=== PATIENT | male | born 1960 | race Caucasian/White ===

== ENCOUNTER 2024-02-06 10:08 | Emergency (ER) | payer OTHER, SELFPAY ==
[2024-02-06 10:15] VITALS: BP 122/92
--- NOTE | 2024-02-06 11:17 | ED.GENMED ---
History of Present Illness
General
Chief Complaint: Abdominal Pain
Source: patient
Exam Limitations: none
Time Seen by Provider: 02/06/24 11:02
Nursing documentation reviewed up to this point in time: agreed with
Travel History
Have you had any contact with someone who has COVID-19?: No
Do you have any symptoms of coronavirus? Fever > 100 degrees, chills, cough, shortness of breath, sore throat, loss of taste or smell, muscle aches, or headache?: No
History of Present Illness
History of Present Illness:
Patient is a 63-year-old male with past medical history of diverticulitis with abscess, alcohol abuse hypertension hyperlipidemia chronic gastritis
presents to the ER complaining of left-sided abdominal discomfort since late last night. Patient also reports he normally has a bowel movement every morning but he only had a little bit yesterday a little bit today which is not normal. He denies
any associated nausea vomiting fever chills. He does feel the same as he did when he was seen here in 2019 with diverticulitis.
Past History
Past History
ED Past Medical History: HTN and Hypercholesterolemia
ED Past Surgical History: Orthopedic
Social History
Tobacco: Former smoker
Alcohol: Daily (Beer 6 pack)
Personal:
Living: with family
Employment: Employed
Review of Systems
Review of Systems
Allergies reviewed?: Yes
All Other Systems: ROS reviewed and negative except as documented in HPI and ROS
Constitutional: Reports no symptoms; Denies fever, fatigue or chills
Respiratory: Reports no symptoms
Cardiac: Reports no symptoms
ABD/GI: Reports no symptoms
: Reports no symptoms
Skin: Reports no symptoms
Neurological: Reports no symptoms
Psychiatric: Reports no symptoms
Phy Exam
General Physical Exam
General Presentation: no apparent distress
General age: appears stated age
General Skin: warm and dry
General Habitus: normal
General Mental: alert
General Hydration: appears well hydrated
Gastrointestinal Exam
Gastrointestinal Exam: soft and other ( tender left abdominal region )
Neurological Exam
Neurological Exam: alert and oriented x3
Musculoskeletal Exam
Musculoskeletal Exam: full ROM
Skin Exam
Skin Exam: normal color and warm/dry
Psychiatric Exam
Psychiatric Exam: normal mood/affect
Course
Orders/Labs/Results
Orders:
Orders
02/06/24 11:28
Iohexol [Omnipaque] See Protocol PO NOW STA
02/06/24 11:30
CT Abd/pel W Iv And Oral Contr Urgent
Comment:
Reason For Exam: left sided abd pain
02/06/24 11:31
IV Insert/Care/Rem.- Treatment PRN
0.9% Sodium Chloride 1000 ml [Nss] 1,000 ml IV BOLUS
02/06/24 11:35
Complete Blood Count/With Diff Urgent
Comprehensive Metabolic Panel Urgent
Lipase Urgent
02/06/24 12:57
Urinalysis Reflex To Culture Urgent
Date Specimen was Collected: 02/06/24
Time Specimen was Collected: 12:56
02/06/24 14:46
Amoxicillin 875 mg/Clav 125 mg [Augmentin 875 mg/125 mg] 1 tablet PO NOW STA
02/06/24 14:51
Vital Signs- Treatment ONCE
Frequency: Once
Abnormal Lab Results
02/06/24
11:35
WBC 12.4 H 10^3/uL
(4.8-10.8)
RBC 4.55 L 10^6/uL
(4.70-6.10)
MCH 31.2 H pg
(27.0-31.0)
Absolute Neuts (auto) 9.6 H 10^3/uL
(1.4-6.5)
Absolute Monos (auto) 1.4 H 10^3/uL
(0.1-0.6)
Neutrophils % 77.0 H %
(42.2-75.2)
Lymphocytes % 10.2 L %
(20.5-51.1)
Monocytes % 11.4 H %
(1.7-9.3)
Sodium 133 L mmol/L
(135-145)
Creatinine 0.6 L mg/dL
(0.7-1.3)
02/06/24 11:35
02/06/24 11:35
Vital Signs
Initial and Last Documented VS:
Initial Vital Signs
Temp Pulse Resp BP Pulse Ox
97.7 F 96 18 122/92 98
02/06/24 10:15 02/06/24 10:15 02/06/24 10:15 02/06/24 10:15 02/06/24 10:15
Last Documented Vital Signs
Temp Pulse Resp BP Pulse Ox
97.7 F 96 18 122/92 98
02/06/24 10:15 02/06/24 10:15 02/06/24 10:15 02/06/24 10:15 02/06/24 10:15
MDM/Problems Addressed
Differential Diagnosis Includes:
Not limited to diverticulitis, less likely bowel obstruction
MDM/Problems Addressed:
CAT scan shows uncomplicated acute diverticulitis of the proximal sigmoid colon. Patient no acute distress looks well has not required anything for pain here in the ER. White count 12.4. Patient does report that when he was seen here and admitted
couple years ago he did wind up getting C. difficile he at that time he was discharged on Flagyl and Cipro because CAT scan reads uncomplicated and patient is no acute distress and well-appearing will DC on Augmentin
*Critical Care Note
Total Time (30-74mins, 75-104mins- exclusive of procedures): Not Applicable
ED Attending Note
-
Portions of this chart may have been created with voice recognition software.� Occasional wrong word or��sound alike� substitutions may have occurred due to the inherent limitations of voice recognition software.
Discharge Plan
Departure
Patient Disposition: Home (Routine Discharge)
Date of Disposition: 02/06/24
Time of Disposition: 14:47
Patient with high blood pressure during this ER visit?: Yes
Condition: Fair
Covid-19: Not Applicable
Discharge Problem:
Diverticulitis
Instructions: Diverticulitis (DC)
Prescriptions:
New
amoxicillin-pot clavulanate 875-125 mg tablet
1 tab PO BID Qty: 20 0RF
No Action
aspirin 81 MG tablet,chewable
81 mg PO DAILY Qty: 1 0RF
Rx Instructions:
over the counter
losartan 50 MG tablet
50 mg PO DAILY
pantoprazole 40 MG tablet,delayed release (DR/EC)
40 mg PO DAILY 30 Days Qty: 30 0RF
vancomycin [Vancocin] 125 MG capsule
125 mg PO QID Qty: 40 0RF
moxifloxacin [Avelox] 400 MG tablet
400 mg PO DAILY Qty: 10 0RF
Referrals:
Ginny Lorenzana MD [Active] -
Ailin Smith CRNP [Family Provider] -
Activity Restrictions/Additional Instructions:
Antibiotic as directed daily for the next 10 days. This medication was sent to her pharmacy. [place] diet as discussed. Follow-up with your family doctor in the next several days as well as GI. Call to make an appointment to return if any
worsening of symptoms of worsening abdominal pain nausea vomiting fever chills.
Interventions
Interventions:
*Risk Screen - Suicide Last Done: 02/06/24 10:15
*General Assessment Last Done: 02/06/24 10:15
*Neglect/Abuse Screening Last Done: 02/06/24 10:15
*ED COVID-19 Vaccine History Last Done: 02/06/24 10:15
LX-Ofznrs-Ghtbpcfbch Assessment Last Done: 02/06/24 11:30
ED- Neurological Assessment Last Done: 02/06/24 11:30
ED-Psychological Assessment Last Done: 02/06/24 11:30
Discharge Date and Time
Print Language: UKRAINIAN
[2024-02-06] MEDS: NSS 1000 IV (11:35)
[2024-02-06] MEDS: OMNIPAQUE 50 ML PO (11:36)
[2024-02-06 12:01] LABS: % Basophils 0.6 % (0-2); % Eosinophils 0.6 % (0-6); % Immature Granulocytes 0.2 % (0-0.5); % Lymphocytes 10.2 % (20.5-51.1); % Monocytes 11.4 % (1.7-9.3); Absolute Basophils 0.1 10^3/uL (0-0.2); Absolute Eosinophils 0.1 10^3/uL (0-0.7); Absolute Lymphocytes 1.3 10^3/uL (1.2-3.4); Absolute Monocytes 1.4 10^3/uL (0.1-0.6); Absolute Neutrophils 9.6 10^3/uL (1.4-6.5); Hemoglobin 14.2 g/dL (13.0-18.0); Mean Corp Hgb Conc. 33.8 g/dL (33.0-37.0); Mean Corpuscular Hgb 31.2 pg (27.0-31.0); Mean Corpuscular Volume 92.3 fL (80.0-94.0); Mean Platelet Volume 10.2 fL (7.4-10.4); Nucleated Red Blood Cells % 0 % (-); Platelet Count 194 10^3/uL (130-400); Red Blood Cell Count 4.55 10^6/uL (4.70-6.10); White Blood Cell Count 12.4 10^3/uL (4.8-10.8)
[2024-02-06 12:04] LABS: ALT (SGPT) 14 U/L (0-50); AST (SGOT) 20 U/L (17-59); Albumin 3.9 g/dl (3.5-5.0); Alkaline Phosphatase 87 U/L (38-126); Blood Urea Nitrogen 11 mg/dl (9-20); Calcium 9.4 mg/dl (8.4-10.2); Carbon Dioxide 24 mmol/L (22-30); Chloride 105 mmol/L (98-107); Estimated Creatinine Clearance > 125 ml/min; Glucose 98 mg/dl (70-99); Lipase 68 U/L (23-300); Potassium 4.2 mmol/L (3.5-5.1); Sodium 133 mmol/L (135-145); Total Bilirubin 0.8 mg/dl (0.2-1.3); Total Protein 6.4 g/dl (6.3-8.2); eGFR > 60.00
[2024-02-06 13:13] LABS: Urine Albumin Negative (Neg - Trace); Urine Bilirubin Negative (Negative); Urine Character Clear (Clear); Urine Color Yellow; Urine Glucose Negative (Negative); Urine Ketone Negative (Negative); Urine Leukocyte Negative (Negative); Urine Nitrite Negative (Negative); Urine Occult Blood Negative (Negative); Urine Specific Gravity 1.005 (<1.030); Urine Urobilinogen Negative (Neg - 1+)
[2024-02-06] MEDS: AUGMENTIN 875 MG/125 MG 1 TABLET PO (15:01)
[2024-02-06 15:07] VITALS: BP 129/87
== END 2024-02-06 15:09 | disposition home or self-care (01) ==
LOC: EMR 10:08
PROVIDERS: Nurse Practitioner; EMERGENCY PHYSICIAN Emergency Medicine; FAMILY PHYSICIAN Nurse Practitioner
DX: K57.32 Diverticulitis of large intestine without perforation or abscess without bleeding (principal); I10 Essential (primary) hypertension; Z87.891 Personal history of nicotine dependence
CPT/HCPCS: 99285; 96360; 74177; 80053; 81003; 83690; 85025; Q9967

== ENCOUNTER → 2024-04-01 06:31 | Day surgery (SDC) | payer OTHER, SELFPAY | LOC: GI 06:31 | PROVIDERS: ATTENDING PHYSICIAN Internal Medicine | DX: R93.3 Abnormal findings on diagnostic imaging of other parts of digestive tract (principal); K57.30 Diverticulosis of large intestine without perforation or abscess without bleeding; K57.32 Diverticulitis of large intestine without perforation or abscess without bleeding; K63.5 Polyp of colon; R13.10 Dysphagia, unspecified; K22.89 Other specified disease of esophagus; K44.9 Diaphragmatic hernia without obstruction or gangrene; K31.89 Other diseases of stomach and duodenum; K21.00 Gastro-esophageal reflux disease with esophagitis, without bleeding; K29.50 Unspecified chronic gastritis without bleeding | CPT/HCPCS: 45385; 43239; 88305; 88342 ==

== ENCOUNTER 2024-11-16 09:57 | Emergency (ER) | payer OTHER, SELFPAY ==
[2024-11-16 09:59] VITALS: BP 153/87
--- NOTE | 2024-11-16 10:37 | ED.GENMED ---
History of Present Illness
General
Chief Complaint: Abdominal Symptoms
Source: patient
Exam Limitations: none
Time Seen by Provider: 11/16/24 10:33
Nursing documentation reviewed up to this point in time: agreed with
History of Present Illness
History of Present Illness:
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
4 days ago: chills, woke up in soaking sweat, non bloody watery diarrhea through the night, violent vomiting
3 days ago: violent vomiting in a.m. then able to drink tea and eat toast
Past 2 days: [place] weak but better, had soft brown stools, no vomiting or diarrhea
Was able to eat and drink yesterday, had 4 beers from the same 6 pack he drank on Sunday prior to onset of symptoms
This 5:30 a.m. woke with watery diarrhea, vomiting and dry heaves.
Denies abdominal or other pain.
Denies fever/chills.
Past History
Past History
ED Past Medical History: HTN and Hypercholesterolemia
ED Past Surgical History: Orthopedic
Social History
Tobacco: Former smoker
Alcohol: Daily (Beer 6 pack)
Personal:
Living: with family
Employment: Employed
Review of Systems
Review of Systems
Allergies reviewed?: Yes
All Other Systems: ROS reviewed and negative except as documented in HPI and ROS
Constitutional: Denies fever or chills
Respiratory: Denies trouble breathing
Cardiac: Denies chest pain
ABD/GI: Reports nausea, vomiting and diarrhea; Denies abdominal pain, bloody stools or black stools
: Denies dysuria or difficulty voiding
Musculoskeletal: Denies edema
Skin: Reports no symptoms
Neurological: Reports no symptoms
Phy Exam
Physical Exam
Physical Exam:
GENERAL: No acute distress. A&Ox3.
CONSTITUTIONAL: Afebrile.
EYES: clear, conjunctivae normal
ENMT: moist mucus membranes, Pharynx nl
RESPIRATORY: Regular respirations, nonlabored, lungs clear.
CARDIOVASCULAR: Regular rate and rhythm, no murmurs, no rubs.
GI: Soft, nontender, normal BS
MUSCULOSKELETAL: Moves with ease. Well perfused.
SKIN: Warm, dry, pink
PSYCH: Normal mood and affect. Well kept, interactive and appropriate
NEUROLOGIC: Awake, alert and oriented. No focal neurological deficits
Course
Orders/Labs/Results
Orders:
Orders
11/16/24 10:46
0.9% Sodium Chloride 1000 ml [Nss] 1,000 ml IV BOLUS
Ondansetron Injectable [Zofran] 4 mg IV NOW STA
11/16/24 10:54
COVID-19 Antigen Urgent
Source: Nasal Swab
Complete Blood Count/With Diff Urgent
Comprehensive Metabolic Panel Urgent
Influenza A+B Rapid Molecular Urgent
[facility] Source: Nasal Swab
Specimen Description:
11/16/24 12:23
Norovirus by PCR Urgent
[place] Source: Feces/Stool
Specimen Description:
Date Specimen was Collected: 11/16/24
Time Specimen was Collected: 12:19
STOOL [C difficile Antigen & Toxins] Urgent
[place] Source: Feces/Stool
Specimen Description:
Date Specimen was Collected: 11/16/24
Time Specimen was Collected: 12:19
Stool Culture Urgent
[place] Source: Feces/Stool
Specimen Description:
Date Specimen was Collected: 11/16/24
Time Specimen was Collected: 12:19
Abnormal Lab Results
11/16/24
10:54
Absolute Lymphs (auto) 1.1 L 10^3/uL
(1.2-3.4)
Lymphocytes % 14.7 L %
(20.5-51.1)
Glucose 109 H mg/dl
(70-99)
11/16/24 10:54
11/16/24 10:54
Vital Signs
Initial and Last Documented VS:
Initial Vital Signs
Temp Pulse Resp BP Pulse Ox
98.2 F 101 16 153/87 98
11/16/24 09:59 11/16/24 09:59 11/16/24 09:59 11/16/24 09:59 11/16/24 09:59
Last Documented Vital Signs
Temp Pulse Resp BP Pulse Ox
98.2 F 77 11 147/84 98
11/16/24 09:59 11/16/24 13:15 11/16/24 13:00 11/16/24 13:00 11/16/24 13:15
MDM/Problems Addressed
Differential Diagnosis Includes:
Viral gastroenteritis, covid, flu, norovirus
MDM/Problems Addressed:
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
4 days ago: chills, woke up in soaking sweat, non bloody watery diarrhea through the night, violent vomiting
3 days ago: violent vomiting in a.m. then able to drink tea and eat toast
Past 2 days: [place] weak but better, had soft brown stools, no vomiting or diarrhea
Was able to eat and drink yesterday, had 4 beers from the same 6 pack he drank on Sunday prior to onset of symptoms
This 5:30 a.m. woke with watery diarrhea, vomiting and dry heaves.
Denies abdominal or other pain.
Denies fever/chills.
12:30 p.m.
CBC normal
CMP normal
Covid neg
Flu neg
Pt has had no vomiting or diarrhea since arrival. Tolerating mo [place].
Rx for Zofran sent to his pharmacy
Stool cultures pending
He states he is comfortable going [email or web address]
*Critical Care Note
Total Time (30-74mins, 75-104mins- exclusive of procedures): Not Applicable
ED Attending Note
-
Portions of this chart may have been created with voice recognition software.� Occasional wrong word or��sound alike� substitutions may have occurred due to the inherent limitations of voice recognition software.
Discharge Plan
Departure
Patient Disposition: Home (Routine Discharge)
Date of Disposition: 11/16/24
Time of Disposition: 13:02
Patient with high blood pressure during this ER visit?: No
Condition: Good
Discharge Problem:
Gastroenteritis
Instructions: Viral gastroenteritis in adults
Prescriptions:
New
ondansetron 4 mg tablet,disintegrating
4 mg PO Q8H PRN (Reason: nausea and vomiting) 4 Days Qty: 12 0RF
No Action
aspirin 81 MG tablet,chewable
81 mg PO DAILY Qty: 1 0RF
Rx Instructions:
over the counter
losartan 50 MG tablet
50 mg PO DAILY
pantoprazole 40 MG tablet,delayed release (DR/EC)
40 mg PO DAILY 30 Days Qty: 30 0RF
vancomycin [Vancocin] 125 MG capsule
125 mg PO QID Qty: 40 0RF
moxifloxacin [Avelox] 400 MG tablet
400 mg PO DAILY Qty: 10 0RF
amoxicillin-pot clavulanate 875-125 mg tablet
1 tab PO BID Qty: 20 0RF
Referrals:
NONE,* [Family Provider] -
Kimmy Ward MD [Active] - As needed
Stand Alone Forms: Return to Work
Activity Restrictions/Additional Instructions:
As we discussed, I sent a prescription to your pharmacy for Zofran to use as needed for nausea and vomiting.
If your symptoms persist beyond the next 3 to 4 days, follow-up with the GI doctor.
Interventions
Interventions:
*Risk Screen - Suicide Last Done: 11/16/24 09:59
*General Assessment Last Done: 11/16/24 10:45
*Neglect/Abuse Screening Last Done: 11/16/24 09:59
ED- Fall Risk Assessment Last Done: 11/16/24 10:45
*ED COVID-19 Vaccine History Last Done: 11/16/24 10:45
*Nursing Disposition Last Done: 11/16/24 13:44
FG-[id number]-Sngspuftxf Assessment Last Done: 11/16/24 10:45
Discharge Date and Time
Discharge Date/Time: 11/16/24 13:45
Print Language: [place]
[2024-11-16 10:45] VITALS: BMI 27.0
[2024-11-16] MEDS: NSS 1000 IV (10:49)
[2024-11-16] MEDS: ZOFRAN 4 MG IV (10:51)
[2024-11-16 10:57] VITALS: BP 140/77
[2024-11-16 11:00] VITALS: BP 141/71
[2024-11-16 11:06] LABS: % Basophils 0.9 % (0-2); % Eosinophils 0.7 % (0-6); % Immature Granulocytes 0.4 % (0-0.5); % Lymphocytes 14.7 % (20.5-51.1); % Monocytes 8.4 % (1.7-9.3); % Neutrophils 74.9 % (42.2-75.2); Absolute Basophils 0.1 10^3/uL (0-0.2); Absolute Eosinophils 0.1 10^3/uL (0-0.7); Absolute Lymphocytes 1.1 10^3/uL (1.2-3.4); Absolute Monocytes 0.6 10^3/uL (0.1-0.6); Absolute Neutrophils 5.5 10^3/uL (1.4-6.5); Hematocrit 46.3 % (39.0-52.0); Hemoglobin 15.5 g/dL (13.0-18.0); Mean Corp Hgb Conc. 33.5 g/dL (33.0-37.0); Mean Corpuscular Hgb 30.6 pg (27.0-31.0); Mean Corpuscular Volume 91.5 fL (80.0-94.0); Mean Platelet Volume 9.8 fL (7.4-10.4); Nucleated Red Blood Cells % 0 % (-); Platelet Count 217 10^3/uL (130-400); Red Blood Cell Count 5.06 10^6/uL (4.70-6.10); Red Cell Dist. Width 12.1 % (11.5-14.5); White Blood Cell Count 7.4 10^3/uL (4.8-10.8)
[2024-11-16 11:12] LABS: COVID-19 Antigen Negative (Negative)
[2024-11-16 11:14] LABS: ALT (SGPT) 24 U/L (0-50); AST (SGOT) 29 U/L (17-59); Albumin 4.1 g/dl (3.5-5.0); Alkaline Phosphatase 74 U/L (38-126); Blood Urea Nitrogen 10 mg/dl (9-20); Calcium 8.8 mg/dl (8.4-10.2); Carbon Dioxide 24 mmol/L (22-30); Chloride 105 mmol/L (98-107); Estimated Creatinine Clearance 112 ml/min; Glucose 109 mg/dl (70-99); Sodium 137 mmol/L (135-145); Total Bilirubin 0.8 mg/dl (0.2-1.3); Total Protein 6.6 g/dl (6.3-8.2); eGFR > 60.00
[2024-11-16 12:00] VITALS: BP 145/76
[2024-11-16 13:00] VITALS: BP 147/84
== END 2024-11-16 13:45 | disposition home or self-care (01) ==
LOC: EMR 09:57
PROVIDERS: Registered Nurse; EMERGENCY PHYSICIAN Emergency Medicine
DX: K52.9 Noninfective gastroenteritis and colitis, unspecified (principal); E78.00 Pure hypercholesterolemia, unspecified; I10 Essential (primary) hypertension; Z87.891 Personal history of nicotine dependence; Z87.19 Personal history of other diseases of the digestive system
CPT/HCPCS: 99284; 96374; 80053; 85025; 87045; 87046; 87077; 87324; 87427; 87449; 87502; 87798; 87811

== ENCOUNTER → 2025-06-16 06:27 | Outpatient (REF) | payer OTHER, SELFPAY | LOC: RAD 06:27 | PROVIDERS: ATTENDING PHYSICIAN Nurse Practitioner | DX: R09.89 Other specified symptoms and signs involving the circulatory and respiratory systems (principal) | CPT/HCPCS: 93880 ==

== ENCOUNTER → 2025-06-20 11:04 | Outpatient (REF) | payer OTHER, SELFPAY | LOC: RCS 11:04 | PROVIDERS: ATTENDING PHYSICIAN Nurse Practitioner | DX: R01.1 Cardiac murmur, unspecified (principal); R09.89 Other specified symptoms and signs involving the circulatory and respiratory systems | CPT/HCPCS: 93306 ==